=== PATIENT | female | born 1985 | race Two or more races ===

== ENCOUNTER → 2017-07-07 | Outpatient (CLI) | payer OTHER | END | disposition home or self-care (01) | LOC: WOUND 14:58 | PROVIDERS: ATTEND Family Medicine | DX: L97.222 Non-pressure chronic ulcer of left calf with fat layer exposed (principal) | CPT/HCPCS: 97597 ==

== ENCOUNTER → 2017-07-14 | Outpatient (CLI) | payer OTHER | END | disposition home or self-care (01) | LOC: WOUND 08:40 | PROVIDERS: ATTEND Internal Medicine | DX: L97.222 Non-pressure chronic ulcer of left calf with fat layer exposed (principal) | CPT/HCPCS: 11042 ==

== ENCOUNTER → 2017-07-21 | Outpatient (CLI) | payer OTHER | END | disposition home or self-care (01) | LOC: WOUND 15:03 | PROVIDERS: ATTEND Internal Medicine | DX: L97.222 Non-pressure chronic ulcer of left calf with fat layer exposed (principal) | CPT/HCPCS: 11042 ==

== ENCOUNTER → 2017-07-28 | Outpatient (CLI) | payer OTHER | END | disposition home or self-care (01) | LOC: WOUND 14:46 | PROVIDERS: ATTEND Internal Medicine | DX: L97.222 Non-pressure chronic ulcer of left calf with fat layer exposed (principal) | CPT/HCPCS: 97597 ==

== ENCOUNTER → 2017-08-04 | Outpatient (CLI) | payer OTHER | END | disposition home or self-care (01) | LOC: WOUND 15:18 | PROVIDERS: ATTEND Internal Medicine | DX: L97.222 Non-pressure chronic ulcer of left calf with fat layer exposed (principal) | CPT/HCPCS: 99214 ==

== ENCOUNTER 2019-05-29 12:18 | Outpatient (CLI) | payer OTHER ==
[~2019-05-29] VITALS: Ht 160 cm; Wt 95.9 kg
[2019-05-29 12:48] VITALS: BP 93/61
[2019-05-29 12:51] LABS: BASOPHILS # (AUTO) 0.04 x10^3/uL (0-0.1); BASOPHILS % (AUTO) 1 % (0-1); EOSINOPHILS # (AUTO) 0.03 x10^3/uL (0-0.4); EOSINOPHILS % (AUTO) 0 % (1-7); LYMPHOCYTES # (AUTO) 1.93 x10^3/uL (1-3.4); LYMPHOCYTES % (AUTO) 24 % (22-44); MD NO; MEAN CORPUSCULAR HEMOGLOBIN 29.3 pg (27.0-34.8); MEAN CORPUSCULAR HGB CONC 32.9 g/dL (32.4-35.8); MEAN CORPUSCULAR VOLUME 89.1 fL (80-100); MEAN PLATELET VOLUME 8.5 fL (7.4-10.4); MONOCYTES # (AUTO) 0.31 x10^3/uL (0.2-0.8); MONOCYTES % (AUTO) 4 % (2-9); NEUTROPHILS # (AUTO) 5.61 x10^3/uL (1.8-6.8); NEUTROPHILS % (AUTO) 71 % (42-75); PLATELET COUNT 297 x10^3/uL (130-400); RED BLOOD COUNT 4.39 x10^6/uL (3.82-5.3); RED CELL DISTRIBUTION WIDTH 14.6 % (9.6-15.2)
[2019-05-29 12:59] LABS: ALANINE AMINOTRANSFERASE 76 U/L (12-78); ALBUMIN 2.9 g/dL (3.4-5.0); ANION GAP 10 mmol/L (5-15); CALCIUM 9.4 mg/dL (8.5-10.1); CHLORIDE 104 mmol/L (98-107)
[2019-05-29 13:02] LABS: ALKALINE PHOSPHATASE 141 U/L (45-117); BILIRUBIN,TOTAL 0.5 mg/dL (0.2-1.0); CREATININE 0.88 mg/dL (0.55-1.02); TOTAL PROTEIN 7.6 g/dL (6.4-8.2)
[2019-05-29 13:48] LABS: MICROSCOPIC INDICATED
[2019-05-29] MEDS ORDERED: ONDANSETRON 2MG/ML, 2ML IVPush PRN (14:30)
[2019-05-29] MEDS ORDERED: ACETAMINOPHEN 500 MG TABLET PO PRN (14:30)
[2019-05-29] MEDS ORDERED: D5%-LACTATED RINGERS 1,000 ML IV SCH (14:30)
[2019-05-29 14:34] LABS: CREATININE,URINE RANDOM 29.2 mg/dL
[2019-05-29] MEDS ORDERED: ACETAMINOPHEN 500 MG TABLET ONE (14:38)
== END 2019-05-29 18:17 | disposition home or self-care (01) ==
LOC: LDOP 12:18
PROVIDERS: ATTEND Student in an Organized Health Care Education/Training Program
DX: O99.613 Diseases of the digestive system complicating pregnancy, third trimester (principal); K80.20 Calculus of gallbladder without cholecystitis without obstruction; Z3A.30 30 weeks gestation of pregnancy; Z79.899 Other long term (current) drug therapy
CPT/HCPCS: 36415; 59025; 76705; 80053; 81001; 82570; 83690; 84156; 85025; 87086; 96360; 96361; 99211; J7121; 99201; G0463

== ENCOUNTER 2019-06-01 13:48 | Outpatient (CLI) | payer OTHER ==
[~2019-06-01] VITALS: Ht 160 cm; Wt 95.9 kg
[2019-06-01] MEDS ORDERED: BETAMETHASONE 6 MG/ML, 5ML IM ONE (13:51)
[2019-06-01 13:52] VITALS: BP 102/58
[2019-06-01] MEDS ORDERED: BETAMETHASONE 6 MG/ML, 5ML IM SCH (14:00)
[2019-06-01] MEDS ORDERED: PLEASE ENTER HEIGHT AND WEIGHT MC SCH (14:00)
[2019-06-01] MEDS ORDERED: PREN1TAB60 PO (14:08)
[2019-06-01] MEDS ORDERED: CHOL10003 PO (14:08)
== END 2019-06-01 14:50 | disposition home or self-care (01) ==
LOC: LDOP 13:48
PROVIDERS: ATTEND Student in an Organized Health Care Education/Training Program
DX: O99.613 Diseases of the digestive system complicating pregnancy, third trimester (principal); K80.20 Calculus of gallbladder without cholecystitis without obstruction; R10.9 Unspecified abdominal pain; Z3A.30 30 weeks gestation of pregnancy
CPT/HCPCS: 59025; 96372; 99201; J0702; G0463

== ENCOUNTER → 2019-06-02 | Day surgery (SDC) | payer OTHER ==
[~2019-06-02] VITALS: Ht 160 cm; Wt 95.9 kg
[~2019-06-02] MED LIST: ACETAMINOPHEN 325 MG TABLET ONE; ACETAMINOPHEN 325 MG TABLET PO PRN; ACETAMINOPHEN 650 MG/20.3 ML UDC ONE; BETAMETHASONE 6 MG/ML, 5ML IM ONE; BUPIVACAINE/PF-EPI 0.5% 1:200K ONE; CEFOTETAN PMX 2GM/50ML 50 ML ONE; CHOL10003 PO; DOCUSATE 100 MG CAPSULE ONE; EPHEDRINE 50 MG/ML, 1ML IVPush PRN; EPHEDRINE 50 MG/ML, 1ML ONE; FENTANYL PF 100 MCG/2ML ONE; FENTANYL PF 250 MCG/5ML ONE; HYDROmorphone 2 MG/ML, 1ML IVPush PRN; LABETALOL 5MG/ML, 20ML IV PRN; LACTATED RINGERS 1,000 ML IVBOLUS ONE; MEPERIDINE/PF 25MG/ML,1ML IVPush PRN; ONDANSETRON 2MG/ML, 2ML IV PRN; ONDANSETRON 2MG/ML, 2ML ONE; OXYcodone 5 MG/5 ML ORAL.SOL UDC ONE; OXYcodone 5 MG/5 ML ORAL.SOL UDC PO PRN; OXYcodone IR 5MG TABLET ONE; OXYcodone IR 5MG TABLET PO PRN; PREN1TAB60 PO; PRENATAL VIT/IRON/FA 1 EACH TABLET ONE; PRENATAL VIT/IRON/FA 1 EACH TABLET PO SCH; PROMETHAZINE 25 MG/ML, 1ML IV PRN; PROPOFOL 10 MG/ML, 20ML ONE; ROCURONIUM 10 MG/ML,10ML ONE; SIMETHICONE 80 MG CHEW TAB ONE; SODIUM CHLORIDE FLUSH 3ML SYRINGE IVF SCH; SUCCINYLCHOLINE 20 MG/ML, 10ML ONE; hydrALAzine 20 MG/ML, 1ML IV PRN
[2019-06-02 11:02] VITALS: BP 107/61
[2019-06-02 12:13] VITALS: BP 109/62
[2019-06-02] MEDS: FENTANYL PF 100 MCG/2ML IV PRN ×2 (15:00→15:10)
[2019-06-02] MEDS: DOCUSATE 100 MG CAPSULE PO SCH (21:00)
[2019-06-03] MEDS: OXYcodone IR 5MG TABLET PO PRN ×3 (01:13→12:48)
[2019-06-03] MEDS: SIMETHICONE 80 MG CHEW TAB PO PRN ×2 (01:49→09:05)
[2019-06-03 08:46] VITALS: BP 103/65
[2019-06-03] MEDS: DOCUSATE 100 MG CAPSULE PO SCH (09:05)
== END | disposition home or self-care (01) ==
LOC: OR 10:36 → UNDOADMIN 11:06 → LDIP 11:06 → UNDODISIN 06-03 13:03
PROVIDERS: ATTEND Surgery
DX: O99.613 Diseases of the digestive system complicating pregnancy, third trimester (principal); K80.12 Calculus of gallbladder with acute and chronic cholecystitis without obstruction; K66.0 Peritoneal adhesions (postprocedural) (postinfection); Z3A.30 30 weeks gestation of pregnancy; Z79.899 Other long term (current) drug therapy
CPT/HCPCS: 47562; 88304; J0330; J2405; J2704; J3010; J3490; J7120; G0378

== ENCOUNTER 2019-07-07 21:36 | Inpatient (IN) | payer OTHER ==
[~2019-07-07] VITALS: Ht 160 cm; Wt 97.7 kg
[~2019-07-07 21:36] MED LIST changes: -ACETAMINOPHEN 325 MG TABLET ONE; -ACETAMINOPHEN 325 MG TABLET PO PRN; -ACETAMINOPHEN 650 MG/20.3 ML UDC ONE; -BETAMETHASONE 6 MG/ML, 5ML IM ONE; -BUPIVACAINE/PF-EPI 0.5% 1:200K ONE; -CEFOTETAN PMX 2GM/50ML 50 ML ONE; -DOCUSATE 100 MG CAPSULE ONE; -EPHEDRINE 50 MG/ML, 1ML IVPush PRN; -EPHEDRINE 50 MG/ML, 1ML ONE; -FENTANYL PF 100 MCG/2ML ONE; -FENTANYL PF 250 MCG/5ML ONE; -HYDROmorphone 2 MG/ML, 1ML IVPush PRN; -LABETALOL 5MG/ML, 20ML IV PRN; -LACTATED RINGERS 1,000 ML IVBOLUS ONE; -MEPERIDINE/PF 25MG/ML,1ML IVPush PRN; -ONDANSETRON 2MG/ML, 2ML IV PRN; -ONDANSETRON 2MG/ML, 2ML ONE; -OXYcodone 5 MG/5 ML ORAL.SOL UDC ONE; -OXYcodone 5 MG/5 ML ORAL.SOL UDC PO PRN; -OXYcodone IR 5MG TABLET ONE; -OXYcodone IR 5MG TABLET PO PRN; -PRENATAL VIT/IRON/FA 1 EACH TABLET ONE; -PRENATAL VIT/IRON/FA 1 EACH TABLET PO SCH; -PROMETHAZINE 25 MG/ML, 1ML IV PRN; -PROPOFOL 10 MG/ML, 20ML ONE; -ROCURONIUM 10 MG/ML,10ML ONE; -SIMETHICONE 80 MG CHEW TAB ONE; -SODIUM CHLORIDE FLUSH 3ML SYRINGE IVF SCH; -SUCCINYLCHOLINE 20 MG/ML, 10ML ONE; -hydrALAzine 20 MG/ML, 1ML IV PRN
[2019-07-07] MEDS ORDERED: FENTANYL/BUPIV./NS/PF 250 ML EPIDCONT SCH (22:37)
[2019-07-07] MEDS ORDERED: D5%-LACTATED RINGERS 1,000 ML IV SCH (22:37)
[2019-07-07] MEDS ORDERED: OXYTOCIN 30U/ 0.9% NaCL 500ML 500 ML IV PRN (22:37)
[2019-07-07] MEDS ORDERED: OXYTOCIN 30U/ 0.9% NaCL 500ML 500 ML IV ONE (22:37)
[2019-07-07] MEDS ORDERED: OXYTOCIN 30U/ 0.9% NaCL 500ML 500 ML ONE (22:41)
[2019-07-07] MEDS ORDERED: NEWBORN KIT ONE (22:41)
[2019-07-07] MEDS: LACTATED RINGERS 1,000 ML IV SCH (22:55)
[2019-07-07] MEDS ORDERED: FENTANYL PF 100 MCG/2ML IV PRN (23:00)
[2019-07-07] MEDS ORDERED: FENTANYL PF 100 MCG/2ML IVPush PRN (23:00)
[2019-07-07] MEDS ORDERED: TERBUTALINE 1 MG/ML, 1ML IVPush PRN (23:00)
[2019-07-07] MEDS ORDERED: PENICILLIN GK 5,000,000 UNITS in DEXTROSE 5% 100 ML IVPB ONE (23:00)
[2019-07-07] MEDS ORDERED: CALCIUM CARBONATE 500 MG TAB.CHEW PO PRN (23:00)
[2019-07-07] MEDS ORDERED: ONDANSETRON 2MG/ML, 2ML IVPush PRN (23:00)
[2019-07-07] MEDS ORDERED: TERBUTALINE 1 MG/ML, 1ML SQ PRN (23:00)
[2019-07-07 23:01] LABS: BASOPHILS # (AUTO) 0.02 x10^3/uL (0-0.1); BASOPHILS % (AUTO) 0 % (0-1); EOSINOPHILS # (AUTO) 0.07 x10^3/uL (0-0.4); EOSINOPHILS % (AUTO) 1 % (1-7); LYMPHOCYTES # (AUTO) 2.75 x10^3/uL (1-3.4); LYMPHOCYTES % (AUTO) 29 % (22-44); MD NO; MEAN CORPUSCULAR HGB CONC 32.9 g/dL (32.4-35.8); MEAN CORPUSCULAR VOLUME 85.1 fL (80-100); MEAN PLATELET VOLUME 9.8 fL (7.4-10.4); MONOCYTES # (AUTO) 0.66 x10^3/uL (0.2-0.8); MONOCYTES % (AUTO) 7 % (2-9); NEUTROPHILS # (AUTO) 5.87 x10^3/uL (1.8-6.8); NEUTROPHILS % (AUTO) 63 % (42-75); PLATELET COUNT 259 x10^3/uL (130-400); RED BLOOD COUNT 4.09 x10^6/uL (3.82-5.3); RED CELL DISTRIBUTION WIDTH 14.9 % (9.6-15.2)
[2019-07-08 01:00] VITALS: BP 108/67
[2019-07-08] MEDS: LACTATED RINGERS 1,000 ML IV SCH ×5 (02:44→19:34)
[2019-07-08] MEDS: PENICILLIN GK 2,500,000 UNITS in DEXTROSE 5% 100 ML IVPB SCH ×5 (02:47→20:16)
[2019-07-08] MEDS ORDERED: LIDOCAINE 1%, 20ML ONE (03:07)
[2019-07-08] MEDS ORDERED: FENTANYL PF 100 MCG/2ML ONE ×2 (06:29→08:06)
[2019-07-08] MEDS ORDERED: FENTANYL/BUPIV./NS/PF 250 ML EPIDCONT ONE (10:57)
[2019-07-08] MEDS ORDERED: FENTANYL PF 500 MCG, BUPIVACAINE/PF 0.5%, 30ML 62.5 ML in SODIUM CHLORIDE 0.9% 177.5 ML EPIDCONT SCH (11:00)
[2019-07-08] MEDS ORDERED: FENTANYL/BUPIV./NS/PF 250 ML EPIDCONT SCH (11:34)
[2019-07-08] MEDS ORDERED: NALOXONE 0.4 MG/ML, 1ML IVPush PRN (12:00)
[2019-07-08] MEDS ORDERED: EPHEDRINE 50 MG/ML, 1ML IVPush PRN (12:00)
[2019-07-08] MEDS ORDERED: LACTATED RINGERS 1,000 ML IVBOLUS PRN (12:00)
[2019-07-08] MEDS ORDERED: OXYTOCIN 30U/ 0.9% NaCL 500ML 500 ML IV SCH (23:49)
[2019-07-09] MEDS ORDERED: ONDANSETRON 2MG/ML, 2ML IV PRN
[2019-07-09] MEDS ORDERED: OXYcodone/APAP 5/325MG TABLET PO PRN ×2
[2019-07-09] MEDS ORDERED: RHOGAM FROM BLOOD BANK 1 NOTE EA IM/IV ONE
[2019-07-09] MEDS ORDERED: MISOPROSTOL 200 MCG TABLET PR PRN
[2019-07-09] MEDS ORDERED: SIMETHICONE 80 MG CHEW TAB PO PRN
[2019-07-09] MEDS ORDERED: ACETAMINOPHEN 325 MG TABLET PO PRN ×2
[2019-07-09] MEDS ORDERED: DIPH,PERTUSS(ACELL),TET VAC/PF NC IM-VACC PRN
[2019-07-09] MEDS ORDERED: IBUPROFEN 600 MG TABLET ONE (01:05)
[2019-07-09] MEDS: IBUPROFEN 600 MG TABLET PO PRN ×4 (01:07→20:50)
[2019-07-09 02:50] VITALS: BP 102/72
[2019-07-09] MEDS: LACTATED RINGERS 1,000 ML IV SCH ×3 (03:34→19:07)
[2019-07-09 07:50] VITALS: BP 106/74
[2019-07-09 08:35] LABS: MEAN CORPUSCULAR HEMOGLOBIN 27.9 pg (27.0-34.8); MEAN CORPUSCULAR HGB CONC 32.6 g/dL (32.4-35.8); MEAN CORPUSCULAR VOLUME 85.7 fL (80-100); MEAN PLATELET VOLUME 9.4 fL (7.4-10.4); PLATELET COUNT 214 x10^3/uL (130-400); RED BLOOD COUNT 3.46 x10^6/uL (3.82-5.3)
[2019-07-09 08:49] LABS: BASOPHILS # (AUTO) 0.04 x10^3/uL (0-0.1); BASOPHILS % (AUTO) 0 % (0-1); EOSINOPHILS # (AUTO) 0.01 x10^3/uL (0-0.4); EOSINOPHILS % (AUTO) 0 % (1-7); LYMPHOCYTES # (AUTO) 2.14 x10^3/uL (1-3.4); LYMPHOCYTES % (AUTO) 15 % (22-44); MD SCAN; MONOCYTES # (AUTO) 0.56 x10^3/uL (0.2-0.8); MONOCYTES % (AUTO) 4 % (2-9); NEUTROPHILS # (AUTO) 11.56 x10^3/uL (1.8-6.8); NEUTROPHILS % (AUTO) 81 % (42-75)
[2019-07-09] MEDS: PRENATAL VIT/IRON/FA 1 EACH TABLET PO SCH (09:08)
[2019-07-09] MEDS: DOCUSATE 100 MG CAPSULE PO PRN ×2 (09:08→20:50)
[2019-07-09 15:07] VITALS: BP 100/66
[2019-07-09 20:00] VITALS: BP 108/69
[2019-07-10] MEDS: LACTATED RINGERS 1,000 ML IV SCH ×2 (03:34→11:34)
[2019-07-10] MEDS: IBUPROFEN 600 MG TABLET PO PRN ×3 (05:18→18:34)
[2019-07-10 08:00] VITALS: BP 108/67
[2019-07-10] MEDS: DOCUSATE 100 MG CAPSULE PO PRN (08:26)
[2019-07-10] MEDS: PRENATAL VIT/IRON/FA 1 EACH TABLET PO SCH (08:26)
[2019-07-10] MEDS ORDERED: IBUP-1222 PO (10:02)
== END 2019-07-10 19:00 | disposition home or self-care (01) | DRG 807 ==
LOC: LDOP 21:36 → LDIP 22:38 → 2NW 07-09 02:16
PROVIDERS: ADMIT Student in an Organized Health Care Education/Training Program; ATTEND Student in an Organized Health Care Education/Training Program
PROC: 10E0XZZ Delivery of Products of Conception, External Approach (ICD-10-PCS; principal; 2019-07-08)
PROC: 0KQM0ZZ Repair Perineum Muscle, Open Approach (ICD-10-PCS; 2019-07-08)
PROC: 3E0R3BZ Introduction of Anesthetic Agent into Spinal Canal, Percutaneous Approach (ICD-10-PCS; 2019-07-08)
PROC: 00HU33Z Insertion of Infusion Device into Spinal Canal, Percutaneous Approach (ICD-10-PCS; 2019-07-08)
PROC: 10H07YZ Insertion of Other Device into Products of Conception, Via Natural or Artificial Opening (ICD-10-PCS; 2019-07-08)
DX: O42.913 Preterm premature rupture of membranes, unspecified as to length of time between rupture and onset of labor, third trimester (principal); Z37.0 Single live birth; O70.1 Second degree perineal laceration during delivery; Z3A.35 35 weeks gestation of pregnancy
CPT/HCPCS: 36415; 82803; 84112; 85025; 86592; 86850; 86900; G0378; J2540; J3010; J2590; J7120

== ENCOUNTER 2019-11-15 11:17 | Emergency (ER) | payer OTHER ==
[~2019-11-15] VITALS: Ht 160 cm; Wt 94.0 kg
[~2019-11-15 11:17] MED LIST changes: +IBUP-1222 PO
[2019-11-15 11:23] VITALS: BP 133/94
--- NOTE | 2019-11-15 11:59 | NUR ---
ACCIDENTALLY INJECTED WITH 0.3 MG IN RIGHT THIGH EPINEPHERINE DURING AN EPI PEN TRAINING AT 1030 TODAY, WITH A CLEAN/NEW NEEDLE. Appears well. Denies cp or sob Hr/bp wnl "My shakiness was 10/10 right after, its improved to like a 5/10" Provider to bedside- to d/c shortly
--- NOTE | 2019-11-15 12:20 | NUR ---
WITH REASSESSMENT NO C/P/PALPITATIONS VSS TO DISCHARGE HOME IN CARE OF FRIEND REVIEWED PRECAUTIONS/SXS TO WATCH FOR (TEACH BACK SUCCESSFUL)
== END 2019-11-15 12:42 | disposition home or self-care (01) ==
LOC: ED 12:35
DX: Z77.21 Contact with and (suspected) exposure to potentially hazardous body fluids (principal)
CPT/HCPCS: 99281